=== PATIENT | female | born 1990 | race Caucasian/White ===

== ENCOUNTER → 2016-11-17 | Outpatient (CLI) | payer MEDICAID | LOC: OD 15:36 | PROVIDERS: ATTEND Family Medicine | DX: R68.89 Other general symptoms and signs (principal) | CPT/HCPCS: 87804 ==

== ENCOUNTER 2017-09-23 14:10 | Emergency (ER) | payer MEDICAID, OTHER ==
[2017-09-23 14:18] VITALS: BP 109/61
--- NOTE | 2017-09-23 14:37 | ER Document Report ---
ED General - General Chief Complaint: Sinus Congestion Stated Complaint: FACIAL PAIN,COUGH,CONGESTION Time Seen by Provider: 09/23/17 14:35 Mode of Arrival: Ambulatory Information source: Patient Notes: 26-year-old female presents with complaints of sinus tenderness of 2 week duration. Patient notes it hurts when she tips her head forward. She admits nasal drainage. Patient notes initially was URI symptoms today she started having fever. She denies any neck stiffness confusion weakness or altered mental status TRAVEL OUTSIDE OF THE [place] IN LAST 30 DAYS: No - HPI Onset: Other - 2 week duration Onset/Duration: Persistent Quality of pain: Pressure, Sharp Severity: Mild Pain Level: 1 Associated symptoms: Fever, Sinus pain/drainage Exacerbated by: Supine Relieved by: Denies Similar symptoms previously: No Recently seen / treated by doctor: No - Related Data Allergies/Adverse Reactions: No Known Allergies Allergy (Verified 09/23/17 14:15) Past Medical History - Social History Smoking Status: Never Smoker Cigarette use (# per day): No Chew tobacco use (# tins/day): No Smoking Education Provided: No Family History: Reviewed & Not Pertinent Review of Systems - Review of Systems Notes: REVIEW OF SYSTEMS: CONSTITUTIONAL : Admits to fever EENT: Admits sinus pressure admits to dental pain CARDIOVASCULAR: Denies chest pain. Denies palpitations or racing or irregular heart beat. Denies ankle edema. RESPIRATORY: Denies cough, cold, or chest congestion. Denies shortness of breath, difficulty breathing, or wheezing. GASTROINTESTINAL: Denies abdominal pain or distention. Denies nausea, vomiting , or diarrhea. Denies blood in vomitus, stools, or per rectum. Denies black, tarry stools. Denies constipation. GENITOURINARY: Denies difficulty urinating, painful urination, burning, frequency, blood in urine, or discharge. FEMALE GENITOURINARY: Denies vaginal bleeding, heavy or abnormal periods, irregular periods. Denies vaginal discharge or odor. MUSCULOSKELETAL: Denies back or neck pain or stiffness. Denies joint pain or swelling. SKIN: Denies rash, lesions or sores. HEMATOLOGIC : Denies easy bruising or bleeding. LYMPHATIC: Denies swollen, enlarged glands. NEUROLOGICAL: Headache PSYCHIATRIC: Denies anxiety or stress. Denies depression, suicidal ideation, or homicidal ideation. ALL OTHER SYSTEMS REVIEWED AND NEGATIVE. PHYSICAL EXAMINATION: GENERAL: Well-appearing, well-nourished and in no acute distress. Temp 100.2 HEAD: Atraumatic, normocephalic. EYES: Pupils equal round and reactive to light, extraocular movements intact, conjunctiva are normal. ENT: Nares patent, oropharynx clear without exudates. Moist mucous membranes. Frontal sinus tenderness on palpation tooth 16 is tender on palpation but there is no abscess NECK: Normal range of motion, supple without lymphadenopathy LUNGS: Breath sounds clear to auscultation bilaterally and equal. No wheezes rales or rhonchi. HEART: Regular rate and rhythm without murmurs ABDOMEN: Soft, nontender, nondistended abdomen. No guarding, no rebound. No masses appreciated. Female : deferred Musculoskeletal: Normal range of motion, no pitting or edema. No cyanosis. NEUROLOGICAL: Cranial nerves grossly intact. Normal speech, normal gait. Normal sensory, motor exams PSYCH: Normal mood, normal affect. SKIN: Warm, Dry, normal turgor, no rashes or lesions noted. Dictation was performed using [employer] voice recognition software Physical Exam - Vital signs Vitals: Temp Pulse Resp BP Pulse Ox 99.2 F 102 H 16 109/61 98 09/23/17 14:17 09/23/17 14:17 09/23/17 14:17 09/23/17 14:17 09/23/17 14:17 Course - Re-evaluation Re-evalutation: 09/23/17 17:36 Patient will be treated for sinusitis given that symptoms have been ongoing now for 2 weeks and is more bacterial nature, she has no signs of meningitis otherwise looks extremely well is in no distress resting comfortably After performing a Medical Screening Examination, I estimate there is LOW risk for ACUTE GLAUCOMA, TEMPORAL ARTERITIS, MENINGITIS, INCRANIAL HEMORRHAGE, or ISCHEMIC STROKE thus I consider the discharge disposition reasonable. I have reevaluated this patient multiple times and no significant life threatening changes are noted. The patient and I have discussed the diagnosis and risks, and we agree with discharging home with close follow-up with the understanding that symptoms and presentations can change. We also discussed returning to the Emergency Department immediately if new or worsening symptoms occur. We have discussed the symptoms which are most concerning (e.g., changing or worsening symptoms, new numbness or weakness, vomiting, fever) that necessitate immediate return. - Vital Signs Vital signs: Temp Pulse Resp BP Pulse Ox 100.2 F 102 H 16 109/61 98 09/23/17 14:33 09/23/17 14:17 09/23/17 14:17 09/23/17 14:17 09/23/17 14:17 Discharge - Discharge Clinical Impression: Pain, dental Sinusitis Qualifiers: Sinusitis location: frontal Recurrence: non-recurrent Qualified Code(s): J01.10 - Acute frontal sinusitis, unspecified Condition: Stable Disposition: HOME, SELF-CARE Instructions: Sinusitis ([facility]) Additional Instructions: Follow up with your physician tomorrow for further care or return to the ED IMMEDIATELY if symptoms worsen or new concerns occur. If you cannot afford to follow up with your primary care physician a list of low cost clinics have been provided at the end of your discharge papers as well. Prescriptions: Amox Tr/Potassium Clavulanate [Augmentin 875-125 Tablet] 1 tab PO BID 10 Days tablet
== END 2017-09-23 14:42 | disposition home or self-care (01) ==
LOC: ER 14:10
DX: J01.10 Acute frontal sinusitis, unspecified (principal); K08.89 Other specified disorders of teeth and supporting structures; R50.9 Fever, unspecified; R51 Headache
CPT/HCPCS: 99283

== ENCOUNTER 2017-12-31 19:59 | Emergency (ER) | payer OTHER ==
--- NOTE | 2017-12-31 21:50 | ER Document Report ---
HPI - HPI Patient complains to provider of: head injury Onset: This morning Onset/Duration: Sudden Quality of pain: Achy Severity: Mild Pain Level: 2 Context: Patient states she was at work and while leaning over, a coworker closed a car seat which struck the patient in the left upper forehead. Denies loss of consciousness, no nausea or vomiting. Patient finished the remainder of the day out at work. Comes in tonight for evaluation so incident as documented. Patient states she was concerned because she has a history of TBI. Associated Symptoms: Headache Exacerbated by: Denies Relieved by: Other - ibuprofen Similar symptoms previously: Yes Recently seen / treated by doctor: No - ROS ROS below otherwise negative: Yes Systems Reviewed and Negative: Yes All other systems reviewed and negative - NEURO Neurology: REPORTS: Headache. DENIES: Weakness, Vision blurred, Dizzinesss / Vertigo - CARDIOVASCULAR Cardiovascular: DENIES: Chest pain - RESPIRATORY Respiratory: DENIES: Trouble Breathing - DERM Skin Color: Normal Skin Problems: None Past Medical History - General Information source: Patient - Social History Smoking Status: Never Smoker Frequency of alcohol use: None Drug Abuse: None Lives with: Family Family History: Reviewed & Not Pertinent Patient has suicidal ideation: No Patient has homicidal ideation: No Neurological Medical History: Reports: Other - TBI Psychiatric Medical History: Reports: Hx Depression Past Surgical History: Reports: Other - TBI - Immunizations Immunizations up to date: Yes Vertical Provider Document - CONSTITUTIONAL Agree With Documented VS: Yes Exam Limitations: No Limitations General Appearance: WD/WN, No Apparent Distress - INFECTION CONTROL TRAVEL OUTSIDE OF THE [place] IN LAST 30 DAYS: No - HEENT HEENT: Normal ENT Exam, PERRLA - EOMI Notes: No bruising or swelling noted where patient states car seat hit her. Previous scar in that area from surgery. - NECK Neck: Normal Inspection, Supple - RESPIRATORY Respiratory: Breath Sounds Normal, No Respiratory Distress - CARDIOVASCULAR Cardiovascular: Regular Rate, Regular Rhythm - BACK Back: Normal Inspection - MUSCULOSKELETAL/EXTREMETIES Musculoskeletal/Extremeties: MAEW, FROM, Non-Tender Notes: Has full range of motion to neck. Cervical and trapezius muscles nontender to palpation. - NEURO Level of Consciousness: Awake, Alert, Appropriate Notes: Cranial nerves grossly intact. - DERM Integumentary: Warm, Dry Course - Re-evaluation Re-evalutation: 12/31/17 22:10 Discussed with patient that based on exam and mechanism of injury, a CT of the head was not indicated at this time. 12/31/17 22:24 - Vital Signs Vital signs: Temp Pulse Resp BP Pulse Ox 98.5 F 82 16 117/71 100 12/31/17 20:03 12/31/17 20:03 12/31/17 20:03 12/31/17 20:03 12/31/17 20:03 Discharge - Discharge Clinical Impression: Head contusion Qualifiers: Encounter type: initial encounter Contusion of head detail: other part of head Qualified Code(s): S00.83XA - Contusion of other part of head, initial encounter Condition: Good Disposition: HOME, SELF-CARE Additional Instructions: ibuprofen as needed for pain ice packs follow up with your PCP next week for recheck return if symptoms worsen, discussed GRIDER precautions with patient Referrals: [facility]AL[facility],NO [Primary Care Provider] - Follow up as needed
[2017-12-31 22:44] VITALS: BP 112/74
== END 2017-12-31 22:15 | disposition home or self-care (01) ==
LOC: ER 19:59
DX: S00.83XA Contusion of other part of head, initial encounter (principal); Z87.820 Personal history of traumatic brain injury; W22.8XXA Striking against or struck by other objects, initial encounter; Y99.0 Civilian activity done for income or pay
CPT/HCPCS: 99283